=== PATIENT | male | born 1960 | race Caucasian/White ===

== ENCOUNTER 2016-11-12 12:31 | Inpatient (IN) | payer BC, OTHER ==
[~2016-11-12] VITALS: Ht 175.3 cm; Wt 85.6 kg
[2016-11-12] MEDS ORDERED: SODIUM CHLORIDE 0.9% 1,000 ML IV ONE (13:21)
[2016-11-12] MEDS ORDERED: PLEASE ENTER ALLERGIES MC SCH ×2 (13:25)
[2016-11-12] MEDS ORDERED: ASPIRIN 81 MG TABLET CHEW ONE (13:30)
[2016-11-12] MEDS ORDERED: BISACODYL 5 MG EC TABLET PO PRN (13:30)
[2016-11-12] MEDS ORDERED: ASPIRIN 81 MG TABLET CHEW PO ONE (13:30)
[2016-11-12] MEDS ORDERED: ACETAMINOPHEN 325 MG TABLET PO PRN (13:30)
[2016-11-12] MEDS ORDERED: ZOLPIDEM 5MG TABLET PO PRN (13:30)
[2016-11-12] MEDS ORDERED: ONDANSETRON 2MG/ML, 2ML IVP PRN (13:30)
[2016-11-12 13:48] LABS: BLOOD UREA NITROGEN 20 mg/dL (7-18)
[2016-11-12 13:52] LABS: IS PT STATUS REG ER OR PRE ER? YES
[2016-11-12] MEDS ORDERED: MIDAZOLAM 1 MG/ML, 5ML ONE (14:25)
[2016-11-12] MEDS ORDERED: FENTANYL PF 100 MCG/2ML ONE (14:25)
[2016-11-12] MEDS ORDERED: BIVALIRUDIN 250 MG ONE (14:25)
[2016-11-12] MEDS ORDERED: TICAGRELOR 90 MG TABLET ONE (14:25)
[2016-11-12] MEDS ORDERED: VERAPAMIL 2.5 MG/ML, 2ML ONE (14:25)
[2016-11-12] MEDS ORDERED: NITROGLYCERIN 5 MG/ML, 10ML ONE (14:25)
[2016-11-12] MEDS ORDERED: LIDOCAINE 2%, 20ML ONE ×2 (14:26)
[2016-11-12] MEDS ORDERED: HEPARIN 1,000 UNITS/ML, 10ML ONE (14:26)
[2016-11-12] MEDS ORDERED: SODIUM CHLORIDE 0.9% 1,000 ML IV SCH (15:22)
[2016-11-12] MEDS ORDERED: HEPARIN 5,000 UNITS/ML, 1ML IV PRN (17:00)
[2016-11-12] MEDS ORDERED: HEPARIN 5,000 UNITS/ML, 1ML IV ONE (17:00)
[2016-11-12] MEDS ORDERED: HEPARIN 25,000 UNITS/500ML PMX 500 ML IV PRN (17:00)
[2016-11-12] MEDS: METOPROLOL TARTRATE 25 MG TABLET PO SCH (17:55)
[2016-11-12 19:45] VITALS: BP 144/91
[2016-11-12 20:01] LABS: IS PT STATUS REG ER OR PRE ER? NO
[2016-11-12] MEDS ORDERED: ATORVASTATIN 80 MG TABLET PO SCH (21:00)
[2016-11-12] MEDS: SODIUM CHLORIDE FLUSH 10ML SYR IVF SCH (21:00)
[2016-11-12] MEDS: TICAGRELOR 90 MG TABLET PO SCH (21:39)
[2016-11-13 01:34] VITALS: BP 115/74
[2016-11-13 02:18] LABS: IS PT STATUS REG ER OR PRE ER? NO
[2016-11-13] MEDS: METOPROLOL TARTRATE 25 MG TABLET PO SCH (06:00)
[2016-11-13] MEDS ORDERED: ASPIRIN 325 MG TABLET EC PO SCH (06:00)
[2016-11-13 07:13] LABS: BLOOD UREA NITROGEN 15 mg/dL (7-18)
[2016-11-13 08:14] VITALS: BP 148/71
[2016-11-13] MEDS ORDERED: ASPIRIN 81 MG TABLET EC PO SCH (09:00)
[2016-11-13] MEDS ORDERED: RAMIPRIL 2.5 MG CAPSULE PO SCH (09:00)
[2016-11-13] MEDS: SODIUM CHLORIDE FLUSH 10ML SYR IVF SCH (09:04)
[2016-11-13] MEDS: TICAGRELOR 90 MG TABLET PO SCH (09:04)
[2016-11-13] MEDS ORDERED: RAMI2.5C PO (09:49)
[2016-11-13] MEDS ORDERED: ASPI-621 PO (09:49)
[2016-11-13] MEDS ORDERED: NITR0.4T8 SL (09:49)
[2016-11-13] MEDS ORDERED: TICA90TA PO (09:49)
[2016-11-13] MEDS ORDERED: ATOR80TA75 PO (09:49)
[2016-11-13] MEDS ORDERED: METO25TA35 PO (09:49)
== END 2016-11-13 13:20 | disposition home or self-care (01) | DRG 247 ==
LOC: ED 13:20 → 5SO 13:21 → ED 13:41 → 5SO 16:34 → DCLOUNGE 11-13 13:05
PROVIDERS: ADMIT Internal Medicine Cardiovascular Disease; ATTEND Internal Medicine Cardiovascular Disease
PROC: 027034Z Dilation of Coronary Artery, One Artery with Drug-eluting Intraluminal Device, Percutaneous Approach (ICD-10-PCS; principal; 2016-11-12)
PROC: 4A023N7 Measurement of Cardiac Sampling and Pressure, Left Heart, Percutaneous Approach (ICD-10-PCS; 2016-11-12)
PROC: B2111ZZ Fluoroscopy of Multiple Coronary Arteries using Low Osmolar Contrast (ICD-10-PCS; 2016-11-12)
PROC: B2151ZZ Fluoroscopy of Left Heart using Low Osmolar Contrast (ICD-10-PCS; 2016-11-12)
DX: I21.4 Non-ST elevation (NSTEMI) myocardial infarction (principal); I25.110 Atherosclerotic heart disease of native coronary artery with unstable angina pectoris; E78.5 Hyperlipidemia, unspecified; Z86.711 Personal history of pulmonary embolism; Z87.891 Personal history of nicotine dependence
CPT/HCPCS: 36415; 71010; 80048; 80061; 82040; 84484; 85014; 85018; 85025; 85520; 85610; 85730; 93005; 93306; 93458; C1894; J0583; J1644; J2250; J3010; J3490; C1725; C1769; C1874; C1887; Q9967

== ENCOUNTER → 2016-12-20 | Outpatient (CLI) | payer OTHER ==
[~2016-12-20] MED LIST: ASPI-621 PO; ATOR80TA75 PO; METO25TA35 PO; NITR0.4T8 SL; RAMI2.5C PO; TICA90TA PO
== END | disposition home or self-care (01) ==
LOC: CFH 16:09
PROVIDERS: ATTEND Internal Medicine Cardiovascular Disease
DX: I08.1 Rheumatic disorders of both mitral and tricuspid valves (principal); I25.10 Atherosclerotic heart disease of native coronary artery without angina pectoris; Z86.711 Personal history of pulmonary embolism
CPT/HCPCS: 93306